=== PATIENT | male | born 1945 | race Caucasian/White ===

== ENCOUNTER → 2024-10-10 | Outpatient (CLI) | payer OTHER, SELFPAY ==
[2024-10-10 09:45] LABS: Basophils % (Auto) 1 % (0-2.5); Eosinophils # (Auto) 0.2 Thou/mm3 (0.0-0.5); Eosinophils % (Auto) 4 % (0-10); Hematocrit 47.4 % (41.0-53.0); Hemoglobin 16.4 g/dL (13.5-16.0); Immature Granulocytes % (Auto) 0 % (0-0); Immature Granulocytes Auto 0.02 Thou/mm3 (0.00-0.00); Lymphocytes # (Auto) 1.1 Thou/mm3 (1.0-4.8); Lymphocytes % (Auto) 22 % (10-50); Mean Corpuscular HGB Conc 34.6 g/dl (31.0-37.0); Mean Corpuscular Hemoglobin 32.9 pg (25.0-35.0); Mean Corpuscular Volume 95 fL (80-100); Monocytes # (Auto) 0.5 Thou/mm3 (0.0-0.8); Monocytes % (Auto) 10 % (0-12); Neutrophils # (Auto) 3.3 Thou/mm3 (1.8-7.7); Neutrophils % (Auto) 63 % (37-80); Nucleated Red Blood Cell % 0 /100 WBC (0); Platelet Count 191 Thou/mm3 (140-440); RDW Standard Deviation 42.2 fL (35.1-43.9); Red Blood Count 4.98 Miln/mm3 (4.50-5.90); White Blood Count 5.2 Thou/mm3 (3.8-10.6)
[2024-10-10 10:25] LABS: Alanine Aminotransferase 16 U/L (10-49); Albumin, Serum 4.3 gm/dL (3.4-4.8); Alkaline Phosphatase 111 U/L (46-116); Anion Gap 2 (7-16); Aspartate Amino Transferase 21 U/L (0-34); BUN/Creatinine Ratio 28 Ratio (12-20); Bilirubin,Direct 0.1 mg/dL (0.0-0.3); Bilirubin,Total 0.5 mg/dL (0.3-1.2); Blood Urea Nitrogen 22 mg/dL (9-23); Calcium 9.2 mg/dL (8.3-10.6); Carbon Dioxide 31.7 mMol/L (20.0-31.0); Chloride 102 mMol/L (98-107); Creatinine (Component) 0.8 mg/dL (0.6-1.3); Glucose 112 mg/dL (74-106); Osmolality,Calculated 276 (275-295); Potassium 4.8 mMol/L (3.4-5.1); Sodium 136 mMol/L (136-145); Thyroid Stimulating Hormone 5.06 uIU/mL (0.55-4.78); Total Protein 6.8 gm/dL (5.7-8.2); eGFR > 60 See Note
[2024-10-10 12:18] LABS: Cardiac Risk Estimate 5.3 RATIO (4.0-6.7); Cholesterol 242 mg/dL (132-200); HDL Cholesterol 46 mg/dL (40-60); LDL Cholesterol,Calculated 175 mg/dL (0-130); Triglycerides 103 mg/dL (30-150)
== END | disposition home or self-care (01) ==
LOC: COPL 08:47
PROVIDERS: PCP Family Medicine; Referring Provider Family Medicine; Visit Provider Family Medicine
DX: I25.10 Atherosclerotic heart disease of native coronary artery without angina pectoris (principal); G25.0 Essential tremor
CPT/HCPCS: 36415; 80048; 80061; 80076; 84443; 85025